=== PATIENT | female | born 1950 | race Caucasian/White ===

== ENCOUNTER 2019-09-05 06:45 | Day surgery (SDC) | payer MEDICARE ==
[~2019-09-05] VITALS: Ht 157.5 cm; Wt 58.1 kg
[~2019-09-05 06:45] MED LIST: ACETAMINOPHEN325 MG PO; DIFLUCAN150 MG PO; HCTZ25 MG PO; HYDROCODONE-APA1 TAB PO; LEVOTHROID50 MCG PO; NP THYROID30 MG PO; POTASSIUM CHLOR8 ME1 PO
[2019-09-05 07:34] LABS: BASOPHILS 0.1 % (0-2); EOSINOPHILS 0.8 % (0-7); HEMATOCRIT 43.3 % (36.0-48.0); HEMOGLOBIN 14.3 g/dL (12-16); IMMATURE GRANULOCYTES 0.2 % (0-5); MCH 30.2 pg (26.0-34.0); MCV 91.4 fL (80.0-100.0); MONOCYTES 5.6 % (2-11); NEUTROPHILS 73.3 % (40-80); RBC 4.74 10x6/uL (4.00-5.40); RDW 13.4 % (11.5-14.5); WBC 8.6 10x3/uL (4.8-10.8)
[2019-09-05 07:35] LABS: PLATELET COUNT 266 10x3/uL (130-400)
[2019-09-05 07:47] LABS: CALC OSMOLALITY 272 mosm/kg (275-300); CALCIUM 10.4 mg/dL (8.5-10.1); CARBON DIOXIDE 26.1 mmol/L (21.0-32.0); CHLORIDE - SERUM 99 mmol/L (98-107); CREATININE - SERUM 0.5 mg/dL (0.6-1.3); POTASSIUM - SERUM 4.1 mmol/L (3.5-5.1); SODIUM 138 mmol/L (136-145); UREA NITROGEN 10 mg/dL (7-18); eGFR NON AFRICAN AMERICAN > 90 mL/min (90-120)
[2019-09-05 07:48] LABS: GLUCOSE 69 mg/dL (74-106)
[2019-09-05 08:22] VITALS: BP 132/77; Ht 157.5 cm; Wt 58.1 kg
[2019-09-05] MEDS ORDERED: HYDROCODON-ACE1 EA10 PO (10:15)
--- NOTE | 2019-09-05 12:50 | NUR ---
PATIENT AMBULATES TO BATHROOM AND PATIENT REPORTS THAT SHE HAS VOIDED "A GOOD AMOUNT" IN TOILET. PIV DC'D WITH TIP INTACT. PATIENT DRESSING IN PERSONAL CLOTHING
--- NOTE | 2019-09-08 10:13 | OP ---
PATIENT NAME: AJIT SORTO MEDICAL RECORD: [id number] :52 [facility] AD[facility] DATE: SURGEON: JOS WANG MD DATE OF OPERATION: 09/05/2019 PREOPERATIVE DIAGNOSES: 1. Anal fistula. 2. Anal skin tag. 3. Hypertension. 4. Thyroid disease. POSTOPERATIVE DIAGNOSES: 1. Anal fistula. 2. Anal skin tag. 3. Hypertension. 4. Thyroid disease. PROCEDURE: 1. Anal exam under anesthesia. 2. Left posterior anal fistulotomy. 3. Excision of left posterior anal skin tag. SURGEON: Jos Wang MD REPORT OF PROCEDURE: The patient was placed in lithotomy position and the perianal region was prepped and draped in sterile fashion. A small anoscope was inserted and a 360 degree inspection was performed. The patient had opening on the posterior aspect of the anus extending out towards some indurated skin with what appeared to be a fistulous opening at the 5 o'clock position. Just anterior to this at the 4 o'clock position, there was noted to be a pedunculated anal skin tag. We were able to use a lacrimal duct probe and pushed through the opening that was found in the 5 o'clock position and this extended in a straight line to the posterior aspect of the anus through another small opening. I opened up the tissue overlying this using electrocautery. Inside of the fistula tract, there was no sign of any purulence or infection. There were no large cavities present. I excised some of the underlying tissues and sent this off for permanent specimen. The skin tag was then excised using electrocautery up to the edge of the fistula tract opening. This left one large opening present from the 4-5 o'clock position in the anus. The opening was irrigated out thoroughly with normal saline and we probed it some more to make sure there were no other signs of any fistulous tracts. No other tracts were found. Any bleeding was treated with electrocautery. I could see the patient's cremasteric muscles and these were not interrupted during the procedure. The fistulous tract actually began just distal to these sphincteric muscles. The area was inspected one last time and there was no sign of any bleeding. We then infused a total of 10 mL of 0.25% Marcaine with epinephrine into the surrounding tissues and applied Americaine gel to the area. COMPLICATIONS: None. CONDITION: Stable. ANESTHESIA: General endotracheal and local. BLOOD LOSS: 30 mL. OPERATIVE REPORT [id number] AJIT SORTO TRANSINT:[id number] Voice Confirmation ID: [id number] DOCUMENT ID: [id number] cc: Claudia Avila [phone] JOS WANG MD at 1013 CC: CLAUDIA AVILA [phone] DICTATION DATE: 09/05/19 1020 COMPLAINT EVALUATION OFFICER: 09/05/19 1837 [facility] 09/05/19 [facility] [address] [place] [address]
== END 2019-09-05 13:26 | disposition home or self-care (01) ==
LOC: D.OPS 06:45 → D.PAN 09:00 → D.OPS 10:15 → D.PAN 10:15 → D.OPS 13:26
PROVIDERS: ATTEND Surgery
DX: K60.3 Anal fistula (principal); K64.4 Residual hemorrhoidal skin tags; I10 Essential (primary) hypertension; E07.9 Disorder of thyroid, unspecified